=== PATIENT | male | born 1955 | race Caucasian/White ===

== ENCOUNTER 2021-07-18 07:00 | Outpatient (CLI) | payer MEDICARE ==
--- NOTE | 2021-07-19 10:57 | XRAY Report ---
PROCEDURE: Hip w/Pelvis 2-3V RT INDICATIONS: RIGHT HIP PAIN TECHNIQUE: AP pelvis with lateral view(s) of the right hip(s). COMPARISON: None. FINDINGS: Bones: No fractures or dislocations. Pelvic ring appears intact. No suspicious bony lesions. Mild bilateral degenerative hip joint space narrowing. Minimal periarticular osteophytes are present. Min imal degenerative changes are present within the lower lumbar spine. Soft tissues: The visualized bowel gas pattern is normal. No suspicious soft tissue calcifications. IMPRESSION: Arthritic changes within the hips bilaterally as well as lumbar spine as above. Reviewed by: Bhavani Walton MD on 07/19/2021 10:56 AM PST Approved by: Bhavani Walton MD on 07/19/2021 10:56 AM PST Station ID: [id number]
== END 2021-07-18 23:59 | disposition home or self-care (01) ==
LOC: DI.N 07:00
PROVIDERS: ATTEND Physician Assistant
DX: M16.0 Bilateral primary osteoarthritis of hip (principal)